=== PATIENT | male | born 1990 | race Caucasian/White ===

== ENCOUNTER 2023-12-11 01:27 | Emergency (ER) | payer SELFPAY ==
[~2023-12-11] VITALS: Ht 162.6 cm; Wt 68.0 kg
[2023-12-11 01:33] VITALS: BP 134/78; PULSE 100; RESP 16; TEMP 97.4; O2SAT 100
[2023-12-11 02:35] VITALS: BP 134/78; PULSE 100; RESP 16; TEMP 97.4; O2SAT 100
== END 2023-12-11 02:35 ==
LOC: MED 01:27
DX: Z02.89 Encounter for other administrative examinations (principal); Z79.899 Other long term (current) drug therapy; V49.88XA Car occupant (driver) (passenger) injured in other specified transport accidents, initial encounter; Y93.89 Activity, other specified; Y92.89 Other specified places as the place of occurrence of the external cause; Y99.8 Other external cause status
CPT/HCPCS: 99283